=== PATIENT | female | born 1970 | race Caucasian/White ===

== ENCOUNTER 2017-04-03 21:19 | Emergency (ER) | payer SELFPAY ==
[2017-04-03 21:50] LABS: Basophils % (Auto) 0.6 % (0.0-1.8); Hemoglobin 9.1 gm/dl (10.1-14.3); Mean Corpuscular HGB Conc 32 % (30-34); Platelet Count 360 K/mm3 (140-440); Red Blood Count 4.38 M/mm3 (3.65-5.03); White Blood Count 8.9 K/mm3 (4.5-11.0)
[2017-04-03 21:51] LABS: Mean Corpuscular Hemoglobin 21 pg (28-32); Mean Corpuscular Volume 66 fl (79-97)
[2017-04-03 22:10] LABS: Alanine Aminotransferase 16 units/L (7-56); Albumin/Globulin Ratio 1.1 %; Alkaline Phosphatase 91 units/L (35-129); Anion Gap 17 mmol/L; Bilirubin,Total < 0.20 mg/dL (0.1-1.2); Blood Urea Nitrogen 8 mg/dL (7-17); Carbon Dioxide 24 mmol/L (22-30); Chloride 100.6 mmol/L (98-107); Glucose 95 mg/dL (65-100); Lipase 39 units/L (13-60); Potassium 3.9 mmol/L (3.6-5.0); Sodium 138 mmol/L (137-145); Total Protein 7.6 g/dL (6.3-8.2)
[2017-04-03 22:37] LABS: Bilirubin,Urine NEG (Negative); Blood,Urine SM (Negative); Ketones,Urine NEG (Negative); Leukocyte Esterase,Urine NEG (Negative); Mucus,Urine FEW /HPF; Nitrite,Urine NEG (Negative); Protein,Urine <15 mg/dL mg/dL (Negative); Urobilinogen,Urine < 2.0 mg/dL (<2.0); WBC,Urine < 1.0 /HPF (0.0-6.0)
--- NOTE | 2017-04-04 10:38 | Emergency Department Report ---
ED Abdominal Pain HPI - General Chief Complaint: Abdominal Pain Stated Complaint: SEVERE STOMACH PAIN/EMESIS Time Seen by Provider: 04/04/17 10:36 Source: patient Mode of arrival: Ambulatory Limitations: Language Barrier - History of Present Illness Initial Comments: The patient states that approximately 4-5 years ago she had similar pain and had a workup in [place] there. Her workup consisted of what appears to be a skin test as well as upper and lower endoscopy. She states nothing specific was found. She states that she was not told that she was anemic and additionally he has never had a transfusion nor heavy periods. The patient describes months of mid abdominal pain which is intermittent and usually independent of eating. She states over the last 2 days she had diarrhea although it was small in quantity #3 times today without any signs of bleeding. He denies fever or chills. She states the pain is an ache and intermittent but not significantly present at this time. He does not report any radiation of the pain nor any respiratory symptoms or chest discomfort. MD Complaint: abdominal pain -: month(s) (similar to symptoms 4-5 years ago) Location: periumbilical, epigastric Radiation: none Migration to: no migration Severity: mild Severity scale (0 -10): 10 Quality: aching Consistency: intermittent, now resolved Improves With: nothing Worsens With: nothing Associated Symptoms: denies other symptoms (except as indicated indicated), diarrhea. denies: nausea (not currently nauseated) - Related Data Previous Rx's Medication Instructions Recorded Last Taken Type Lansoprazole [Prevacid] 15 mg PO BID #30 cap 04/04/17 Unknown Rx traMADol [Ultram] 50 mg PO Q6HR PRN #14 tablet 04/04/17 Unknown Rx Allergies Allergy/AdvReac Type Severity Reaction Status Date / Time Penicillins Allergy Vomiting Verified 04/04/17 02:28 ED Review of Systems ROS: Stated complaint: SEVERE STOMACH PAIN/EMESIS Other details as noted in HPI Constitutional: denies: chills, fever Eyes: denies: eye pain, eye discharge, vision change ENT: denies: ear pain, throat pain Respiratory: denies: cough, shortness of breath, wheezing Cardiovascular: denies: chest pain, palpitations Endocrine: no symptoms reported Gastrointestinal: as per HPI, abdominal pain. denies: nausea, diarrhea Genitourinary: denies: urgency, dysuria, discharge Musculoskeletal: denies: back pain, joint swelling, arthralgia Skin: denies: rash, lesions Neurological: denies: headache, weakness, paresthesias Psychiatric: denies: anxiety, depression Hematological/Lymphatic: denies: easy bleeding, easy bruising ED Past Medical Hx - Past Medical History Previous Medical History?: No - Surgical History Past Surgical History?: No - Social History Smoking Status: Never Smoker Substance Use Type: None - Medications Home Medications: Home Medications Medication Instructions Recorded Confirmed Last Taken Type Lansoprazole [Prevacid] 15 mg PO BID #30 cap 04/04/17 Unknown Rx traMADol [Ultram] 50 mg PO Q6HR PRN #14 tablet 04/04/17 Unknown Rx ED Physical Exam - General Limitations: Language Barrier General appearance: alert, in no apparent distress - Head Head exam: Present: atraumatic, normocephalic - Eye Eye exam: Present: normal appearance. Absent: scleral icterus - ENT ENT exam: Present: mucous membranes moist - Neck Neck exam: Present: normal inspection. Absent: tenderness, meningismus - Respiratory Respiratory exam: Present: normal lung sounds bilaterally. Absent: respiratory distress - Cardiovascular Cardiovascular Exam: Present: regular rate, normal rhythm. Absent: systolic murmur, diastolic murmur, rubs, gallop - GI/Abdominal GI/Abdominal exam: Present: soft, normal bowel sounds. Absent: distended, tenderness, guarding, rebound, rigid - Extremities Exam Extremities exam: Present: normal inspection - Back Exam Back exam: Present: normal inspection - Neurological Exam Neurological exam: Present: alert, oriented X3, CN II-XII intact. Absent: motor sensory deficit - Psychiatric Psychiatric exam: Present: normal affect, normal mood - Skin Skin exam: Present: warm, dry, intact, normal color. Absent: rash ED Course Vital Signs 04/03/17 04/04/17 04/04/17 21:23 01:24 02:28 Temperature 98.7 F 98.9 F Pulse Rate 89 78 79 Respiratory 18 18 20 Rate Blood Pressure 144/89 128/76 Blood Pressure 130/108 [Right] O2 Sat by Pulse 100 100 100 Oximetry 04/04/17 04/04/17 04/04/17 04:00 06:00 11:05 Temperature Pulse Rate 68 75 73 Respiratory 16 16 16 Rate Blood Pressure Blood Pressure 116/59 115/55 121/75 [Right] O2 Sat by Pulse 98 99 99 Oximetry - Reevaluation(s) Reevaluation #1: The patient has an anemia which is likely chronic. She's had no signs of GI bleeding. She's had a completely negative extensive workup for similar pain. I think at this point she is appropriate for outpatient management considering her exam vital signs labs and history. Patient will be referred to GI. 04/04/17 12:16 ED Medical Decision Making - Lab Data Result diagrams: 04/03/17 21:39 04/03/17 21:39 Laboratory Results - last 24 hr 04/03/17 04/03/17 04/03/17 21:39 21:39 21:39 WBC 8.9 RBC 4.38 Hgb 9.1 L Hct 29.0 L MCV 66 L MCH 21 L MCHC 32 RDW 18.0 H Plt Count 360 Lymph % (Auto) 26.2 Petroleum % (Auto) 9.8 H Eos % (Auto) 4.0 Baso % (Auto) 0.6 Lymph # 2.3 Petroleum # 0.9 H Eos # 0.4 Baso # 0.1 Seg Neutrophils % 59.4 Seg Neutrophils # 5.3 Sodium 138 Potassium 3.9 Chloride 100.6 Carbon Dioxide 24 Anion Gap 17 BUN 8 Creatinine 0.5 L Estimated GFR > 60 BUN/Creatinine Ratio 16.00 Glucose 95 Calcium 9.0 Total Bilirubin < 0.20 AST 18 ALT 16 Alkaline Phosphatase 91 Total Protein 7.6 Albumin 4.0 Albumin/Globulin Ratio 1.1 Lipase 39 HCG, Qual Negative Urine Color Urine Turbidity Urine pH Ur Specific [place] Urine Protein Urine Glucose (UA) Urine Ketones Urine Blood Urine Nitrite Urine Bilirubin Urine Urobilinogen Ur Leukocyte Esterase Urine WBC (Auto) Urine RBC (Auto) Urine Mucus 04/03/17 21:46 WBC RBC Hgb Hct MCV MCH MCHC RDW Plt Count Lymph % (Auto) Petroleum % (Auto) Eos % (Auto) Baso % (Auto) Lymph # Petroleum # Eos # Baso # Seg Neutrophils % Seg Neutrophils # Sodium Potassium Chloride Carbon Dioxide Anion Gap BUN Creatinine Estimated GFR BUN/Creatinine Ratio Glucose Calcium Total Bilirubin AST ALT Alkaline Phosphatase Total Protein Albumin Albumin/Globulin Ratio Lipase HCG, Qual Urine Color Straw Urine Turbidity Clear Urine pH 7.0 Ur Specific [place] 1.009 Urine Protein <15 mg/dl Urine Glucose (UA) Neg Urine Ketones Neg Urine Blood Sm Urine Nitrite Neg Urine Bilirubin Neg Urine Urobilinogen < 2.0 Ur Leukocyte Esterase Neg Urine WBC (Auto) < 1.0 Urine RBC (Auto) 3.0 Urine Mucus Few Critical care attestation.: If time is entered above; I have spent that time in minutes in the direct care of this critically ill patient, excluding procedure time. ED Disposition Clinical Impression: Abdominal pain Qualifiers: Abdominal location: epigastric Qualified Code(s): R10.13 - Epigastric pain Anemia Qualifiers: Anemia type: unspecified type Qualified Code(s): D64.9 - Anemia, unspecified Disposition: - TO HOME OR SELFCARE Is pt being admited?: No Does the pt Need Aspirin: No Condition: Stable Instructions: Abdominal Pain (ED), Anemia (ED) Additional Instructions: I referred her to an mainframe programmer (Dr. Chris) and the gastroenterology specialists. Rx as directed. Return any acute change or problem. Prescriptions: Lansoprazole [Prevacid] 15 mg PO BID #30 cap traMADol [Ultram] 50 mg PO Q6HR PRN #14 tablet PRN Reason: Pain Referrals: PRIMARY CAREMD [Primary Care Provider] - 3-5 Days JANELL CHRIS MD [Staff Physician] - 3-5 Days [facility] [Provider Group] - 3-5 Days Time of Disposition: 12:17
[2017-04-04 11:06] VITALS: BP 121/75
== END 2017-04-04 12:53 | disposition home or self-care (01) ==
LOC: ED 21:19
DX: D64.9 Anemia, unspecified (principal); R10.13 Epigastric pain; Z88.0 Allergy status to penicillin
CPT/HCPCS: 36415; 80053; 81001; 83690; 84703; 85025; 93005; 93010; 99283